=== PATIENT | female | born 1990 | race Asian ===

== ENCOUNTER → 2017-12-23 | Outpatient (CLI) | payer OTHER ==
--- NOTE | 2017-12-23 13:15 | DIAGNOSTIC IMAGING REPORT ---
SOFT TISS HEAD/NECK-THYROID HISTORY: Nodule RT EAR LUMP COMPARISON: None. FINDINGS: Ultrasound of a palpable nodule posterior to the right i ear appears to represent a benign appearing lymph node measuring 9 x 3 x 8 mm. IMPRESSION: The palpable nodule posterior to the right inner ear appears to represent a benign lymph node . The above report was generated using voice recognition software. It may contain grammatical, syntax or spelling errors. Electronically signed by: López Sanchez M.D. 12/23/2017 1:14 PM Dictated Date/Time: 12/23/2017 1:12 PM
== END | disposition home or self-care (01) ==
LOC: C.ULTR 12:50
PROVIDERS: ATTEND Physician Assistant Medical
DX: H93.8X1 Other specified disorders of right ear (principal)